=== PATIENT | male | born 1950 | race Caucasian/White ===

== ENCOUNTER → 2021-11-23 10:26 | Outpatient (BNVA) | payer MEDICARE, OTHER, SELFPAY | PROVIDERS: PCP Internal Medicine; Visit Provider Psychiatry & Neurology Neurology | DX: G20 Parkinson's disease (principal); R06.83 Snoring; G47.10 Hypersomnia, unspecified | CPT/HCPCS: 99202 ==

== ENCOUNTER → 2021-12-24 09:56 | Outpatient (REF) | payer MEDICARE, OTHER, SELFPAY | LOC: HO.SL 09:56 | PROVIDERS: PCP Internal Medicine; Visit Provider Psychiatry & Neurology Neurology | DX: R06.83 Snoring (principal); G47.10 Hypersomnia, unspecified | CPT/HCPCS: 95806 ==

== ENCOUNTER → 2022-05-31 08:51 | Outpatient (BNVA) | payer MEDICARE, OTHER, SELFPAY | PROVIDERS: PCP Internal Medicine; Visit Provider Psychiatry & Neurology Neurology | DX: G20 Parkinson's disease (principal); G47.33 Obstructive sleep apnea (adult) (pediatric) | CPT/HCPCS: 99212 ==

== ENCOUNTER 2022-12-03 12:32 | Outpatient (AMB) | payer MEDICARE, OTHER, SELFPAY ==
--- NOTE | 2022-12-03 12:36 | A.OFFVIS_ITS ---
Intake Vital Signs 12/03/22 12:37 Height 6 ft Weight 237 lb 4 oz BMI 32.2 BP 114/62 Blood Pressure Location Rt brachial Position Sitting Respiration 15 Pulse 54 Pulse Source Pulse Oximeter Pulse Oximetry (%) 96 Oxygen Delivery Method Room Air Intake Visit Reasons: 6m follow up tremor-lvm Intake Note: Pt presnts to the office for his 6 month follow up for tremors. He states his tremors are unchanged. Not better but not any worse. He also reports he got shingles about 2 months ago and stopped using his CPAP maching due to the shingles on his face. He hasn't used his machine since and states he feels no different from when he was using it. 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 He is on trihexyphenidyl 1mg bid and does not notice a difference. He has mild memory issues.He is feeling good apart from the tremors. He had a heart attack April 24 . He is on cardiac rehab He joined [facility] and started a parkinsons class. The tremors are mostly at rest.He denies any weakness or stiffness.. His cognition is good. Sleep- good , laughs in his sleep, no vivid dreams , mild snoring. Mood- normal Motivated- good Speech- no change Drooling- none Hand writing- normal Utensils- ok dressing- ok shower- good gait- no problem turning in bed- normal Hallucinations- none GI - acid refulx Fatigue- none Bowel movements- 2 a day Urination- frequent PFSH Medical History Parkinson's disease without dyskinesia or fluctuating manifestations Obstructive sleep apnea Arthritis Hyperlipidemia GERD (gastroesophageal reflux disease) Prostate cancer History of prostate cancer Surgical History Hx of heart artery stent Hx of appendectomy H/O prostatectomy History of hip replacement Family History Mother Heart disease Father Lung cancer Sister Breast cancer Social History Alcohol intake: current Alcohol intake frequency: holidays/special occasions only Alcohol type: wine Patient Tobacco Use Status: Former Tobacco user Substance Use Type: Marijuana Physical Exam Vital Signs: Last Vital Signs Pulse 54 12/03/22 12:37 Resp 15 12/03/22 12:37 BP 114/62 12/03/22 12:37 Pulse Ox 96 12/03/22 12:37 Oxygen Delivery Method Room Air 12/03/22 12:37 BMI result Body Mass Index 32.2 Const General: cooperative, healthy appearing and comfortable Nutritional Appearance: obese Orientation/consciousness: patient oriented x3 HEENT Head: Yes normal to inspection Throat: Yes other (mallampatti grade 4) Neuro Other: UPDRS - 3 Speech 1-Slight loss of expression,diction or volume Facial expression 3-Moderate hypomimia,lips parted some of the time Rest Tremors( head, Upper, lower ) 3-Moderate in amplitude and present most of the time-Left UE Action and Postural tremors 0-none Rigidity 1-Slight or detectable only when activated by mirror movements Finger Taps 1-Mild slowing an femi reductionin amplitude Hand movements 0-normal 1-mild slowing and or reduction in amplitude Rapid Alternating Movements of Hands 0-normal 1-Mild slowing and or reduction in amplitude Leg agility 0-normal Arising from a chair 0-Normal Posture 0-normal 1-slightly stooped, could be normal for an older person Gait 0-normal- decreased arm swing left UE Postural stability 0-normal 1-retropulsion but recovers unaided Body bradykinesia and hypokinesia 0-none 1-minimal slowness,giving movement a deliberate character,could be normal for some persons.Possible reduced amplitude General: patient oriented x3 Motor exam (neuro): 5/5 motor strength present throughout Deep tendon reflexes (DTR's): Right triceps reflex intensity grade: 1+, Left triceps reflex intensity grade: 1+, Rt Biceps (C5, C6): 1+, Left biceps reflex intensity grade: 1+, Right brachioradialis reflex intensity grade: 1+, Left brachioradialis reflex intensity grade: 1+, Right patellar reflex intensity grade: 1+ and Left patellar reflex intensity grade: 1+ Coordination: [id number] test normal Assessment & Plan Assessment & Plan (1) Parkinson's disease without dyskinesia or fluctuating manifestations: Code(s): G20.A1 - Parkinson's disease without dyskinesia, without mention of fluctuations (2) Obstructive sleep apnea: Code(s): G47.33 - Obstructive sleep apnea (adult) (pediatric) Plan D/C trihexyphenidyl 2mg 1/2 tab bid I will trial him on sinemet 25/100 tid - side effects discussed continue parkinsons classes Continue AutoPAP 5-20 cm of water . compliance stressed. Medications: New carbidopa-levodopa 25-100 mg (Sinemet) 1 tab PO TID 90 tabs 6RF Discontinued trihexyphenidyl give with food (meal/snack) Discontinued Reason: Doctor's Order 1 mg (1/2 x 2 mg) PO BID 30 tabs 6RF Coding Level of Care Code Est Pt Level 4 (07500) Diagnoses Parkinson's disease without dyskinesia or fluctuating manifestations G20.A1 Obstructive sleep apnea G47.33
[2022-12-03 12:37] VITALS: BP 114/62; PULSE 54; RESP 15; O2SAT 96; BMI 32.2
== END 2022-12-03 12:56 | disposition home or self-care (01) ==
PROVIDERS: Visit Provider Psychiatry & Neurology Neurology
DX: G20.A1 Parkinson's disease without dyskinesia, without mention of fluctuations (principal); G47.33 Obstructive sleep apnea (adult) (pediatric)
CPT/HCPCS: 99214

== ENCOUNTER → 2022-12-03 12:32 | Outpatient (BNVA) | payer MEDICARE, OTHER, SELFPAY | PROVIDERS: Visit Provider Psychiatry & Neurology Neurology | DX: G20.A1 Parkinson's disease without dyskinesia, without mention of fluctuations (principal); G47.33 Obstructive sleep apnea (adult) (pediatric) | CPT/HCPCS: 99212 ==

== ENCOUNTER 2023-03-13 13:00 | Outpatient (AMB) | payer MEDICARE, OTHER, SELFPAY ==
--- NOTE | 2023-03-13 13:03 | A.OFFVIS_ITS ---
Intake Vital Signs 03/13/23 13:06 Height 6 ft Weight 241 lb 2 oz BMI 32.7 BP 110/70 Blood Pressure Location Rt brachial Position Sitting Respiration 16 Pulse 64 Pulse Source Palpation Intake Visit Reasons: 3M follow up/ LVM Intake Note: Pt presents to the office for 3 month follow up for tremors. He reports not seeing a change with his medicine. 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 He joined [facility] and started a parkinsons class. The tremors are mostly at rest.He denies any weakness or stiffness..He reports pain in his left fingers. He tried warm compresses, massager but did not help.He started using chondroitin, glucosamine .He describes the pain as ache, stabbing pain. His cognition is good. Sleep- good , laughs in his sleep, no vivid dreams , mild snoring. Mood- normal Motivated- good Speech- no change Drooling- none Hand writing- normal Utensils- ok dressing- ok shower- good gait- no problem turning in bed- normal Hallucinations- none GI - acid refulx Fatigue- none Bowel movements- 2 a day Urination- frequent [facility] Medical History (Updated 03/13/23 @ 13:25 by Floridalma Carter MD) Left hand pain Right hand pain Parkinson's disease without dyskinesia or fluctuating manifestations Obstructive sleep apnea Arthritis Hyperlipidemia GERD (gastroesophageal reflux disease) Prostate cancer History of prostate cancer Surgical History Hx of heart artery stent Hx of appendectomy H/O prostatectomy History of hip replacement Family History Mother Heart disease Father Lung cancer Sister Breast cancer Social History Alcohol intake: current Alcohol intake frequency: holidays/special occasions only Alcohol type: wine Patient Tobacco Use Status: Former Tobacco user Substance Use Type: Marijuana Physical Exam Vital Signs: Last Vital Signs Pulse 64 03/13/23 13:06 Resp 16 03/13/23 13:06 BP 110/70 03/13/23 13:06 BMI result Body Mass Index 32.7 Const General: cooperative, healthy appearing and comfortable Nutritional Appearance: obese Orientation/consciousness: patient oriented x3 HEENT Head: Yes normal to inspection Throat: Yes other (mallampatti grade 4) Neuro Other: UPDRS - 3 Speech 1-Slight loss of expression,diction or volume Facial expression 3-Moderate hypomimia,lips parted some of the time Rest Tremors( head, Upper, lower ) 3-Moderate in amplitude and present most of the time-Left UE Action and Postural tremors 0-none Rigidity 1-Slight or detectable only when activated by mirror movements Finger Taps 1-Mild slowing an femi reductionin amplitude Hand movements 0-normal 1-mild slowing and or reduction in amplitude Rapid Alternating Movements of Hands 0-normal 1-Mild slowing and or reduction in amplitude Leg agility 0-normal Arising from a chair 0-Normal Posture 0-normal 1-slightly stooped, could be normal for an older person Gait 0-normal- decreased arm swing left UE Postural stability 0-normal 1-retropulsion but recovers unaided Body bradykinesia and hypokinesia 0-none 1-minimal slowness,giving movement a deliberate character,could be normal for some persons.Possible reduced amplitude General: patient oriented x3 Motor exam (neuro): 5/5 motor strength present throughout Coordination: [id number] test normal Assessment & Plan Assessment & Plan (1) Parkinson's disease without dyskinesia or fluctuating manifestations: Code(s): G20.A1 - Parkinson's disease without dyskinesia, without mention of fluctuations (2) Obstructive sleep apnea: Code(s): G47.33 - Obstructive sleep apnea (adult) (pediatric) Plan Increase sinemet 25/100 1.5 tabs tid - side effects discussed continue parkinsons classes Continue AutoPAP 5-20 cm of water . compliance stressed. Orders: Referrals Rheumatology Referral M79.642 - Pain in left hand Medications: Changed From carbidopa-levodopa 25-100 mg (Sinemet) 1 tab PO TID 90 tabs 6RF To carbidopa-levodopa 25-100 mg (Sinemet) 1.5 tabs PO TID 150 tabs 6RF Coding Level of Care Code Est Pt Level 4 (45249) Diagnoses Parkinson's disease without dyskinesia or fluctuating manifestations G20.A1 Obstructive sleep apnea G47.33
[2023-03-13 13:06] VITALS: BP 110/70; PULSE 64; RESP 16; BMI 32.7
== END 2023-03-13 13:30 | disposition home or self-care (01) ==
PROVIDERS: PCP Internal Medicine; Visit Provider Psychiatry & Neurology Neurology
DX: G20.A1 Parkinson's disease without dyskinesia, without mention of fluctuations (principal); G47.33 Obstructive sleep apnea (adult) (pediatric)
CPT/HCPCS: 99214

== ENCOUNTER → 2023-03-13 13:00 | Outpatient (BNVA) | payer MEDICARE, OTHER, SELFPAY | PROVIDERS: PCP Internal Medicine; Visit Provider Psychiatry & Neurology Neurology | DX: G20.A1 Parkinson's disease without dyskinesia, without mention of fluctuations (principal); G47.33 Obstructive sleep apnea (adult) (pediatric) | CPT/HCPCS: 99212 ==

== ENCOUNTER 2023-04-30 14:39 | Outpatient (REF) | payer MEDICARE, OTHER, SELFPAY ==
--- NOTE | ~2023-04-30 | XR_ITS ---
EXAMINATION: XR FOOT, RIGHT CLINICAL INFORMATION: Pain in left and right foot COMPARISON: None available. TECHNIQUE: AP, lateral, and oblique views of the right foot. FINDINGS: There is no evidence of fracture. There are mild degenerative changes at the first metatarsophalangeal joint without erosive changes. Soft tissues unremarkable. There is plantar and small posterior calcaneal spurring. XR/XR foot RT min 3V IMPRESSION: Mild degenerative changes and calcaneal spurring
--- NOTE | ~2023-04-30 | XR_ITS ---
EXAMINATION: XR HAND, LEFT CLINICAL INFORMATION: Pain in hand COMPARISON: None available. TECHNIQUE: PA, lateral, and oblique views of the left hand. FINDINGS: There is narrowing and irregularity of the proximal and distal interphalangeal joints, more prominent in the face and fourth fingers consistent with changes of osteoarthritis. Soft tissues unremarkable. XR/XR hand LT min 3V IMPRESSION: Changes of osteoarthritis
--- NOTE | ~2023-04-30 | XR_ITS ---
EXAMINATION: XR FOOT, LEFT CLINICAL INFORMATION: Pain in left foot COMPARISON: None available. TECHNIQUE: AP, lateral, and oblique views of the left foot. FINDINGS: There are changes of osteoarthritis at the first metatarsophalangeal joint with marginal spurring and subchondral cysts formation. There is plantar and posterior calcaneal spurring. There is no evidence of fractures. Soft tissues unremarkable XR/XR foot LT min 3V IMPRESSION: Changes of osteoarthritis of the first metatarsophalangeal joint and calcaneal spurring
--- NOTE | ~2023-04-30 | XR_ITS ---
EXAMINATION: XR HAND, RIGHT CLINICAL INFORMATION: Pain COMPARISON: None available. TECHNIQUE: PA, lateral, and oblique views of the right hand. FINDINGS: There is mild irregularity and narrowing of distal and proximal interphalangeal joints, less prominent than on the left. There are mild narrowing of fourth and third metacarpophalangeal joints there are changes of osteoarthritis of the first carpometacarpal joint with subchondral cysts formation and buttressing. Soft tissues unremarkable. No evidence of fractures. XR/XR hand RT min 3V IMPRESSION: Changes of osteoarthritis.
--- NOTE | ~2023-04-30 | XR_ITS ---
EXAMINATION: XR ABDOMEN KUB CLINICAL INDICATION: Abdominal pain COMPARISON: None available. TECHNIQUE: AP view of the abdomen, 3 views. FINDINGS: The bowel gas pattern is normal with no evidence of ileus or obstruction. No unusual soft tissue calcifications are noted. 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 XR/XR abdomen 1V IMPRESSION: Unremarkable abdomen
[2023-04-30 16:01] LABS: MANUAL DIFF FLAG NO
[2023-04-30 16:28] LABS: Basophils Percent Auto 0.5 % (0-2); Eosinophils Absolute Auto 0.1 X10*3/uL (0.0-0.4); Eosinophils Percent Auto 1.9 % (0-4); Hematocrit 43.1 % (42.0-52.0); Hemoglobin 15.1 g/dl (14.0-18.0); Imm Gran Abs Auto 0.02 X10*3/uL (0.00-0.03); Imm Gran Pct Auto 0.3 % (0.0-0.4); Lymphocytes Absolute Auto 1.4 X10*3/uL (1.2-4.9); Mean Corpuscular Hemoglobin 30.6 pg (27.0-33.0); Mean Corpuscular Volume 87.2 fL (80.0-98.0); Mean Platelet Volume 9.1 fL (9.4-12.4); Monocytes Absolute Auto 0.6 X10*3/uL (0.1-1.2); Monocytes Percent Auto 9.6 % (2-11); Neutrophils Absolute Auto 3.6 x10*3/uL (2.0-8.3); Neutrophils Percent Auto 62.7 % (45-73); Platelet Count 168 X10*3/uL (160-400); Red Blood Count 4.94 X10*6/uL (4.60-5.80); Red Cell Distribution Width 13.2 % (11.0-16.0); White Blood Count 5.8 X10*3/uL (4.8-10.8)
[2023-04-30 17:03] LABS: Erythrocyte Sedimentation Rate 3 MM/HR (0-15)
[2023-04-30 17:36] LABS: Alanine Aminotransferase 5 U/L (0-40); Albumin Level 4.2 g/dL (3.5-5.0); Alkaline Phosphatase 58 U/L (39-117); Anion Gap 10 (12-20); Aspartate Amino Transferase 16 U/L (5-37); Bilirubin Total 0.7 mg/dL (0.0-1.0); Blood Urea Nitrogen 17 mg/dL (9-16); C Reactive Protein < 0.10 mg/dL (< or = 0.50); Calcium 8.9 mg/dL (8.4-10.2); Carbon Dioxide 26 mmol/L (22-29); Chloride 109 mmol/L (96-108); Estimated Glomerular Filt Rate > 60; Glucose Random 99 mg/dL (60-115); Potassium 3.8 mmol/L (3.3-5.1); Sodium 141 mmol/L (135-145); Total Protein 6.9 g/dL (6.5-8.0); Uric Acid 4.4 mg/dL (3.4-7.0)
[2023-04-30 17:38] LABS: Rheumatoid Factor < 13.0 IU/mL (<15.0)
[2023-05-01 08:21] LABS: HBS Num1 0.12 mIU/mL (0-7.99); HBc Num1 0.06 S/CO (0.00-0.79); HBsAGNum1 0.35 S/CO (0.00-0.99); Hepatitis A Antibody IgM 0.13 Index (0-0.79); Hepatitis B Core Antibody Nonreactive (Nonreactive); Hepatitis B Surface Antigen Negative (Negative); ~HepC Num1 0.08 S/CO (0.00-0.79); ~Hepatitis A Antibody IgM Nonreactive (Nonreactive); ~Hepatitis B Surface Antibody NONREACTIVE (Nonreactive); ~Hepatitis C Antibody Nonreactive (Nonreactive)
[2023-05-02 13:43] LABS: SM/Ribonucleoprotein Ab <1.0 NEG AI (<1.0 NEG); Smith Protein <1.0 NEG AI (<1.0 NEG)
[2023-05-02 13:52] LABS: Cyclic Citrullinated Peptide <16 UNITS
[2023-05-02 21:03] LABS: Prot Elec - Alpha1 0.3 g/dL (0.2-0.3); Prot Elec - Alpha2 0.5 g/dL (0.5-0.9); Prot Elec - Beta 1 0.5 g/dL (0.4-0.6); Prot Elec - Beta 2 0.3 g/dL (0.2-0.5); Prot Elec - Gamma 0.9 g/dL (0.8-1.7); Prot Elec - Total Protein 6.4 g/dL (6.1-8.1)
[2023-05-02 22:33] LABS: TS Negative Control Passed; TS Panel A 0; TS Panel B 0; TS Positive Control Passed; TSpotTB Negative (Negative)
[2023-05-06 16:33] LABS: IgA 208 mg/dL (70-320); IgG 1009 mg/dL (600-1540); IgM 81 mg/dL (50-300)
[2023-05-07 11:24] LABS: ANA Pattern 2 Nuclear, Homogeneous; Anti Nuclear Antibody Pattern Nuclear, Nucleolar; Anti Nuclear Antibody Screen POSITIVE (NEGATIVE)
== END 2023-04-30 14:40 | disposition home or self-care (01) ==
LOC: HO.XRAY 14:39
PROVIDERS: PCP Internal Medicine; Visit Provider Nurse Practitioner Family
DX: Z11.1 Encounter for screening for respiratory tuberculosis (principal); M25.571 Pain in right ankle and joints of right foot; M25.572 Pain in left ankle and joints of left foot; M79.642 Pain in left hand; M79.641 Pain in right hand; M79.671 Pain in right foot; M79.672 Pain in left foot; R10.9 Unspecified abdominal pain; G89.29 Other chronic pain
CPT/HCPCS: 36415; 73130; 73630; 74018; 80053; 82550; 82784; 84165; 84550; 85025; 85652; 86038; 86039; 86140; 86200; 86235; 86334; 86431; 86481; 86704; 86706; 86709; 86803; 87340; 99202

== ENCOUNTER 2023-04-30 14:39 | Outpatient (AMB) | payer MEDICARE, OTHER, SELFPAY ==
[2023-04-30 14:51] VITALS: BP 118/68; PULSE 67; TEMP 36.3; O2SAT 99; BMI 33.5
--- NOTE | 2023-04-30 14:51 | A.OFFVIS_ITS ---
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 Nuñez 72-year-old male, here on referral by his neurologist, presents today for evaluation left hand pain and finger swelling. The patient reports that he has had pain and swelling in his hands/fingers for several years that comes and goes. However recently the 2nd and 5th PIP of his left hand has been swelling and hurts more often now. He denies swelling in other joints. He does describe regular aches and pains that he thinks comes with naturally with aging. He was diagnosed with Parkinson's 2 years ago. Patient has a history of prostate cancer 9 years ago. He takes Eliquis, rosuvastatin, sildenafil, Sinemet and Plavix. He has also used diclofenac 1% gel in the past without effective relief. The patient denies uveitis, psoriasis, GI concerns, and Achilles tendonitis or plantar fasciitis. He denies known personal or family history of gout 03/13/2023 Neuro Visit: 72y/o right handed male comes for follow up of Parkinsons disease that started in Jan 2021 and JEANMARIE- AHI 11 O2 luke 85%.He was unable use CPAP.He sleeps on his side and bought a new mattress which helps. He joined [employer] and started a parkinsons class. The tremors are mostly at rest.He denies any weakness or stiffness..He reports pain in his left fingers. He tried warm compresses, massager but did not help.He started using chondroitin, glucosamine .He describes the pain as ache, stabbing pain. His cognition is good. Sleep- good , laughs in his sleep, no vivid dreams , mild snoring. Mood- normal Motivated- good Speech- no change Drooling- none Hand writing- normal Utensils- ok dressing- ok shower- good gait- no problem turning in bed- normal Hallucinations- none GI - acid refulx Fatigue- none Bowel movements- 2 a day Urination- frequent [facility] Medical History (Updated 04/30/23 @ 15:31 by Ammy Huggins [facility]) Chronic right flank pain Bilateral ankle joint pain Bilateral foot pain Left hand pain Right hand pain Parkinson's disease without dyskinesia or fluctuating manifestations Obstructive sleep apnea Arthritis Hyperlipidemia GERD (gastroesophageal reflux disease) Prostate cancer History of prostate cancer Surgical History Hx of heart artery stent Hx of appendectomy H/O prostatectomy History of hip replacement Family History Mother Heart disease Father Lung cancer Sister Breast cancer Social History Alcohol intake: current Alcohol intake frequency: holidays/special occasions only Alcohol type: wine Patient Tobacco Use Status: Former Tobacco user Substance Use Type: Marijuana Review of Systems Const All systems reviewed & are unremarkable except as noted in HPI and below Physical Exam Vital Signs: Last Vital Signs Temp 97.3 F 04/30/23 14:51 Pulse 67 04/30/23 14:51 BP 118/68 04/30/23 14:51 Pulse Ox 99 04/30/23 14:51 Oxygen Delivery Method Room Air 04/30/23 14:51 BMI result Body Mass Index 33.5 Vital signs reviewed. Constitutional: Non-toxic appearing. No acute distress. Well-developed and well-nourished. HEENT: Normocephalic and atraumatic. External auditory canals without erythema or edema bilaterally. Moist mucous membranes. No pharyngeal erythema or exudates. Skin: Warm and dry. No rashes or lesions noted. Neck: Full and painless range of motion. No cervical lymphadenopathy. Cardio: Regular rate and rhythm. No murmurs, gallops, or rubs. No lower extremity edema. No JVD. Pulmonary: No respiratory distress. No accessory muscle usage. Genitourinary: No CVA tenderness. Musculoskeletal: Normal range of motion in joints throughout the body. Decreased range of motion to bilateral 2nd and 3rd fingers, unable to make complete fist with all fingers. Swelling and tenderness to right 2nd and 5th PIP joints with contracture Neuro: Alert and oriented x4. Cranial nerves 2-12 grossly intact. No focal deficits appreciated. Assessment & Plan Assessment & Plan (1) Left hand pain: Code(s): M79.642 - Pain in left hand (2) Right hand pain: Code(s): M79.641 - Pain in right hand (3) Bilateral ankle joint pain: Code(s): M25.571 - Pain in right ankle and joints of right foot; M25.572 - Pain in left ankle and joints of left foot (4) Bilateral foot pain: Code(s): M79.671 - Pain in right foot; M79.672 - Pain in left foot (5) Chronic right flank pain: Code(s): R10.9 - Unspecified abdominal pain; G89.29 - Other chronic pain Plan #Hand and Foot Swelling: The patient reports that he has been having intermittent hand and foot swelling over the last few years. However in recent months the swelling in his fingers as described in his physical examination has not been resolving. Says it is painful and it makes it difficult to do certain tasks. There is clear synovitis to his right 2nd PIP joint. It is likely that this can be of rheumatoid arthritis or crystal arthropathy. I will obtain labs and x-rays to assess patient's baseline. I will 1st treat this as gout given the localized swelling presentation. I will prescribe him some colchicine for the next 10 days. If this does not result in his colchicine we will consider to start him on a course of prednisone. If his lab results return elevated uric acid and will start him on allopurinol. If the prednisone resolves the swelling and pain and the uric acid level is low will consider this to be a non crystal inflammatory arthritis. #Flank pain: The patient describes pain to the right flank area when he swings his golf club or sits a certain way. This could likely be a kidney stone, a pulled muscle. no percussion tenderness on exam. If if persists patient can discuss with his primary care provider to consider doing a abdominal x-ray. I spent 50 minutes reviewing history, evaluating patient and documenting Follow-up in 3 weeks Orders: Orders XR hand RT min 3V 04/30/23 M25.571 - Pain in right ankle and joints of right foot, M25.572 - Pain in left ankle and joints of left foot, M79.641 - Pain in right hand, M79.642 - Pain in left hand, M79.671 - Pain in right foot, M79.672 - Pain in left foot Anti Extractable Nuclear Ag 04/30/23 M25.571 - Pain in right ankle and joints of right foot, M25.572 - Pain in left ankle and joints of left foot, M79.641 - Pain in right hand, M79.642 - Pain in left hand, M79.671 - Pain in right foot, M79.672 - Pain in left foot Complete Blood Count Auto Diff 04/30/23 M25.571 - Pain in right ankle and joints of right foot, M25.572 - Pain in left ankle and joints of left foot, M79.641 - Pain in right hand, M79.642 - Pain in left hand, M79.671 - Pain in right foot, M79.672 - Pain in left foot Comprehensive Met. Panel 04/30/23 M25.571 - Pain in right ankle and joints of right foot, M25.572 - Pain in left ankle and joints of left foot, M79.641 - Pain in right hand, M79.642 - Pain in left hand, M79.671 - Pain in right foot, M79.672 - Pain in left foot Immunoglobulins,IgG IgA IgM 04/30/23 M25.571 - Pain in right ankle and joints of right foot, M25.572 - Pain in left ankle and joints of left foot, M79.641 - Pain in right hand, M79.642 - Pain in left hand, M79.671 - Pain in right foot, M79.672 - Pain in left foot Uric Acid 04/30/23 M25.571 - Pain in right ankle and joints of right foot, M25.572 - Pain in left ankle and joints of left foot, M79.641 - Pain in right hand, M79.642 - Pain in left hand, M79.671 - Pain in right foot, M79.672 - Pain in left foot Rheumatoid Factor 04/30/23 M25.571 - Pain in right ankle and joints of right foot, M25.572 - Pain in left ankle and joints of left foot, M79.641 - Pain in right hand, M79.642 - Pain in left hand, M79.671 - Pain in right foot, M79.672 - Pain in left foot XR foot LT min 3V 04/30/23 M25.571 - Pain in right ankle and joints of right foot, M25.572 - Pain in left ankle and joints of left foot, M79.641 - Pain in right hand, M79.642 - Pain in left hand, M79.671 - Pain in right foot, M79.672 - Pain in left foot XR foot RT min 3V 04/30/23 M25.571 - Pain in right ankle and joints of right foot, M25.572 - Pain in left ankle and joints of left foot, M79.641 - Pain in right hand, M79.642 - Pain in left hand, M79.671 - Pain in right foot, M79.672 - Pain in left foot XR hand LT min 3V 04/30/23 M25.571 - Pain in right ankle and joints of right foot, M25.572 - Pain in left ankle and joints of left foot, M79.641 - Pain in right hand, M79.642 - Pain in left hand, M79.671 - Pain in right foot, M79.672 - Pain in left foot Erythrocyte Sedimentation Rate 04/30/23 M25.571 - Pain in right ankle and joints of right foot, M25.572 - Pain in left ankle and joints of left foot, M79.641 - Pain in right hand, M79.642 - Pain in left hand, M79.671 - Pain in right foot, M79.672 - Pain in left foot PRETTY Reflex Titer and Pattern 04/30/23 M25.571 - Pain in right ankle and joints of right foot, M25.572 - Pain in left ankle and joints of left foot, M79.641 - Pain in right hand, M79.642 - Pain in left hand, M79.671 - Pain in right foot, M79.672 - Pain in left foot C Reactive Protein 04/30/23 M25.571 - Pain in right ankle and joints of right foot, M25.572 - Pain in left ankle and joints of left foot, M79.641 - Pain in right hand, M79.642 - Pain in left hand, M79.671 - Pain in right foot, M79.672 - Pain in left foot Creatine Kinase Total 04/30/23 M25.571 - Pain in right ankle and joints of right foot, M25.572 - Pain in left ankle and joints of left foot, M79.641 - Pain in right hand, M79.642 - Pain in left hand, M79.671 - Pain in right foot, M79.672 - Pain in left foot Protein Electrophoresis, Serum 04/30/23 M25.571 - Pain in right ankle and joints of right foot, M25.572 - Pain in left ankle and joints of left foot, M79.641 - Pain in right hand, M79.642 - Pain in left hand, M79.671 - Pain in right foot, M79.672 - Pain in left foot Hepatitis A,B,C Profile 04/30/23 M25.571 - Pain in right ankle and joints of right foot, M25.572 - Pain in left ankle and joints of left foot, M79.641 - Pain in right hand, M79.642 - Pain in left hand, M79.671 - Pain in right foot, M79.672 - Pain in left foot T Spot TB 04/30/23 M25.571 - Pain in right ankle and joints of right foot, M25.572 - Pain in left ankle and joints of left foot, M79.641 - Pain in right hand, M79.642 - Pain in left hand, M79.671 - Pain in right foot, M79.672 - Pain in left foot Immunofixation Pnl, Serum 04/30/23 M25.571 - Pain in right ankle and joints of right foot, M25.572 - Pain in left ankle and joints of left foot, M79.641 - Pain in right hand, M79.642 - Pain in left hand, M79.671 - Pain in right foot, M79.672 - Pain in left foot Cyclic Citrullinated Peptide 04/30/23 M25.571 - Pain in right ankle and joints of right foot, M25.572 - Pain in left ankle and joints of left foot, M79.641 - Pain in right hand, M79.642 - Pain in left hand, M79.671 - Pain in right foot, M79.672 - Pain in left foot Coding Level of Care Code New Pt Level 4 (11953) Diagnoses Left hand pain M79.642 Right hand pain M79.641 Bilateral ankle joint pain M25.571; M25.572 Bilateral foot pain M79.671; M79.672 Chronic right flank pain R10.9; G89.29
== END 2023-04-30 15:39 | disposition home or self-care (01) ==
PROVIDERS: PCP Internal Medicine; Visit Provider Nurse Practitioner Family
DX: M79.642 Pain in left hand (principal); M79.641 Pain in right hand; M25.571 Pain in right ankle and joints of right foot; M25.572 Pain in left ankle and joints of left foot; M79.671 Pain in right foot; M79.672 Pain in left foot; R10.9 Unspecified abdominal pain; G89.29 Other chronic pain
CPT/HCPCS: 99204

== ENCOUNTER 2023-05-21 15:05 | Outpatient (AMB) | payer MEDICARE, OTHER, SELFPAY ==
--- NOTE | 2023-05-21 15:07 | A.OFFVIS_ITS ---
Vital Signs 05/21/23 15:13 Height 5 ft 11 in Weight 233 lb 0.458 oz BMI 32.5 BP 120/58 L Blood Pressure Location Rt brachial Position Sitting Pulse 62 Pulse Source Pulse Oximeter Pulse Oximetry (%) 98 Oxygen Delivery Method Room Air Intake Visit Reasons: Hand finger swelling Intake Note: Patient last seen 04/30/23, presents today for follow up and test results. Patient would like to discuss the use of colchicine and atorvastatin. Supervisor Tumbling And Rolling Required: No Accompanied by: Self / Same As Patient Allergies No Known Allergies Allergy (Verified 05/21/23 15:14) HPI Comments Details: 04/30/2023 initial Visit: Mr. Nuñez 72-year-old male, here on referral by his neurologist, presents today for evaluation left hand pain and finger swelling. The patient reports that he has had pain and swelling in his hands/fingers for several years that comes and goes. However recently the 2nd and 5th PIP of his left hand has been swelling and hurts more often now. He denies swelling in other joints. He does describe regular aches and pains that he thinks comes with naturally with aging. He was diagnosed with Parkinson's 2 years ago. Patient has a history of prostate cancer 9 years ago. He takes Eliquis, rosuvastatin, sildenafil, Sinemet and Plavix. He has also used diclofenac 1% gel in the past without effective relief. The patient denies uveitis, psoriasis, GI concerns, and Achilles tendonitis or plantar fasciitis. He denies known personal or family history of gout 03/13/2023 Neuro Visit: 72y/o right handed male comes for follow up of Parkinsons disease that started in Jan 2021 and JEANMARIE- AHI 11 O2 luke 85%.He was unable use CPAP.He sleeps on his side and bought a new mattress which helps. He joined [facility] and started a parkinsons class. The tremors are mostly at rest.He denies any weakness or stiffness..He reports pain in his left fingers. He tried warm compresses, massager but did not help.He started using chondroitin, glucosamine .He describes the pain as ache, stabbing pain. His cognition is good. Sleep- good , laughs in his sleep, no vivid dreams , mild snoring. Mood- normal Motivated- good Speech- no change Drooling- none Hand writing- normal Utensils- ok dressing- ok shower- good gait- no problem turning in bed- normal Hallucinations- none GI - acid refulx Fatigue- none Bowel movements- 2 a day Urination- frequent [facility] Medical History (Updated 04/30/23 @ 15:31 by Ammy Huggins [facility]) Chronic right flank pain Bilateral ankle joint pain Bilateral foot pain Left hand pain Right hand pain Parkinson's disease without dyskinesia or fluctuating manifestations Obstructive sleep apnea Arthritis Hyperlipidemia GERD (gastroesophageal reflux disease) Prostate cancer History of prostate cancer Surgical History Hx of heart artery stent Hx of appendectomy H/O prostatectomy History of hip replacement Family History Mother Heart disease Father Lung cancer Sister Breast cancer Social History Alcohol intake: current Alcohol intake frequency: holidays/special occasions only Alcohol type: wine Patient Tobacco Use Status: Former Tobacco user Substance Use Type: Marijuana Review of Systems Const All systems reviewed & are unremarkable except as noted in HPI and below Physical Exam Vital Signs: Last Vital Signs Pulse 62 05/21/23 15:13 BP 120/58 L 05/21/23 15:13 Pulse Ox 98 05/21/23 15:13 Oxygen Delivery Method Room Air 05/21/23 15:13 BMI result Body Mass Index 32.5 Vital signs reviewed. Constitutional: Non-toxic appearing. No acute distress. Well-developed and well-nourished. HEENT: Normocephalic and atraumatic. External auditory canals without erythema or edema bilaterally. Moist mucous membranes. No pharyngeal erythema or exudates. Skin: Warm and dry. No rashes or lesions noted. Neck: Full and painless range of motion. No cervical lymphadenopathy. Cardio: Regular rate and rhythm. No murmurs, gallops, or rubs. No lower extremity edema. No JVD. Pulmonary: No respiratory distress. No accessory muscle usage. Genitourinary: No CVA tenderness. Musculoskeletal: Normal range of motion in joints throughout the body. Decreased range of motion to bilateral 2nd and 3rd fingers, unable to make comp lete fist with all fingers. Swelling and tenderness to right 2nd and 5th PIP joints with contracture has improved - trace swelling remains and no tenderness Neuro: Alert and oriented x4. Cranial nerves 2-12 grossly intact. No focal deficits appreciated. Results Reviewed Results Reviewed: Laboratory Tests 04/30/23 16:00 WBC 5.8 RBC 4.94 Hgb 15.1 Hct 43.1 Creatinine 0.74 AST 16 ALT 5 Total Creatine Kinase 195 H C-Reactive Protein < 0.10 Total Protein 6.9 Total Protein (PEP) 6.4 IgG Total 1009 IgA Total 208 IgM 81 Rheumatoid Factor < 13.0 Cycl Citrul Peptide IgG <16 PRETTY Titer 1:320 H Sm (Ochoa) Antibody <1.0 NEG SM/SENIOR [employer]ACLE [employer]F DEVELOPER IgG Antibody <1.0 NEG Laboratory Tests 04/30/23 16:00 ESR 3 Uric Acid 4.4 TECHNIQUE: AP, lateral, and oblique views of the right foot. FINDINGS: There is no evidence of fracture. There are mild degenerative changes at the first metatarsophalangeal joint without erosive changes. Soft tissues unremarkable. There is plantar and small posterior calcaneal spurring. XR/XR foot RT min 3V IMPRESSION: Mild degenerative changes and calcaneal spurring FINDINGS: There are changes of osteoarthritis at the first metatarsophalangeal joint with marginal spurring and subchondral cysts formation. There is plantar and posterior calcaneal spurring. There is no evidence of fractures. Soft tissues unremarkable XR/XR foot LT min 3V IMPRESSION: Changes of osteoarthritis of the first metatarsophalangeal joint and calcaneal spurring FINDINGS: There is mild irregularity and narrowing of distal and proximal interphalangeal joints, less prominent than on the left. There are mild narrowing of fourth and third metacarpophalangeal joints there are changes of osteoarthritis of the first carpometacarpal joint with subchondral cysts formation and buttressing. Soft tissues unremarkable. No evidence of fractures. XR/XR hand RT min 3V IMPRESSION: Changes of osteoarthritis. FINDINGS: There is narrowing and irregularity of the proximal and distal interphalangeal joints, more prominent in the face and fourth fingers consistent with changes of osteoarthritis. Soft tissues unremarkable. XR/XR hand LT min 3V IMPRESSION: Changes of osteoarthritis Assessment & Plan Assessment & Plan (1) Left hand pain: Code(s): M79.642 - Pain in left hand Category: Medical (2) Right hand pain: Code(s): M79.641 - Pain in right hand Category: Medical (3) Bilateral ankle joint pain: Code(s): M25.571 - Pain in right ankle and joints of right foot; M25.572 - Pain in left ankle and joints of left foot Category: Medical (4) Bilateral foot pain: Code(s): M79.671 - Pain in right foot; M79.672 - Pain in left foot Category: Medical (5) Chronic right flank pain: Code(s): R10.9 - Unspecified abdominal pain; G89.29 - Other chronic pain Category: Medical Plan # hand swelling: Mr. Gerard and returns for evaluation of initial assessment of hand swelling, positive PRETTY anterior review his diagnostic results. Mr. Nuñez had improvement of his hand and foot swelling on the course of colchicine. He still has some trace swelling and minimal tenderness remaining at the left PIP joint, 2nd and 3rd. I think some prednisone will help to clear up fully. At this point I am suspecting it is more crystal arthropathy than an inflammatory arthropathy such as rheumatoid. The paradoxus that his uric acid levels are normal at this point. Additionally his PRETTY remains positive but the ENAs are negative and so is his rheumatoid factor and CCP, ESR and CRP. If return of symptoms becomes chronic I will consider this as an inflammatory seronegative rheumatoid arthritis and start a DMARD. I spent 30 minutes with the patient reviewing chart, discussing lab findings, discussing treatment going forward, evaluating the patient and documenting 6 months follow-up with labs 1 week before next visit Initial assessment: #Hand and Foot Swelling: The patient reports that he has been having intermittent hand and foot swelling over the last few years. However in recent months the swelling in his fingers as described in his physical examination has not been resolving. Says it is painful and it makes it difficult to do certain tasks. There is clear synovitis to his right 2nd PIP joint. It is likely that this can be of rheumatoid arthritis or crystal arthropathy. I will obtain labs and x-rays to assess patient's baseline. I will 1st treat this as gout given the localized swelling presentation. I will prescribe him some colchicine for the next 10 days. If this does not result in his colchicine we will consider to start him on a course of prednisone. If his lab results return elevated uric acid and will start him on allopurinol. If the prednisone resolves the swelling and pain and the uric acid level is low will consider this to be a non crystal inflammatory arthritis. #Flank pain: The patient describes pain to the right flank area when he swings his golf club or sits a certain way. This could likely be a kidney stone, a pulled muscle. no percussion tenderness on exam. If if persists patient can discuss with his primary care provider to consider doing a abdominal x-ray. Medications: New prednisone orally daily; 3 tablets per day x 3 days 2 tablets per day x 3 days 1 tablet per day x 3 days stop. 20 tabs 0RF M79.641 - Pain in right hand, M79.642 - Pain in left hand
[2023-05-21 15:13] VITALS: BP 120/58; PULSE 62; O2SAT 98; BMI 32.5
== END 2023-05-21 15:42 | disposition home or self-care (01) ==
PROVIDERS: PCP Internal Medicine; Visit Provider Nurse Practitioner Family
DX: M79.642 Pain in left hand (principal); M79.641 Pain in right hand; M25.571 Pain in right ankle and joints of right foot; M25.572 Pain in left ankle and joints of left foot; M79.671 Pain in right foot; M79.672 Pain in left foot; R10.9 Unspecified abdominal pain; G89.29 Other chronic pain
CPT/HCPCS: 99213

== ENCOUNTER → 2023-05-21 15:05 | Outpatient (BNVA) | payer MEDICARE, OTHER, SELFPAY | PROVIDERS: PCP Internal Medicine; Visit Provider Nurse Practitioner Family | DX: M79.89 Other specified soft tissue disorders (principal) | CPT/HCPCS: 99212 ==

== ENCOUNTER 2023-07-14 14:06 | Outpatient (AMB) | payer MEDICARE, OTHER, SELFPAY ==
--- NOTE | 2023-07-14 14:11 | A.OFFVIS_ITS ---
Vital Signs 07/14/23 14:16 Height 5 ft 11 in Weight 239 lb 4 oz BMI 33.4 BP 112/62 Blood Pressure Location Rt brachial Position Sitting Respiration 16 Pulse 63 Pulse Source Pulse Oximeter Pulse Oximetry (%) 97 Oxygen Delivery Method Room Air Intake Visit Reasons: 4 mo f/u - LVM w/add Intake Note: Pt presents for a 4 month follow up for JEANMARIE. Information Engineer Required: No Allergies No Known Allergies Allergy (Verified 07/14/23 14:12) Medication List - Last Reconciled 07/14/23 by Floridalma Carter MD apixaban (Eliquis) 5 mg PO BID carbidopa-levodopa 25-100 mg (Sinemet) 1.5 tabs PO TID colchicine 0.6 mg PO DAILY ezetimibe 10 mg PO DAILY prednisone orally daily; 3 tablets per day x 3 days 2 tablets per day x 3 days 1 tablet per day x 3 days stop. rosuvastatin 40 mg PO DAILY sildenafil 100 mg PO DAILY PRN HPI Comments Details: 72y/o right handed male comes for follow up of Parkinsons disease that started in Jan 2021 and JEANMARIE- AHI 11 O2 luke 85%.He was unable use CPAP.He sleeps on his side and bought a new mattress which helps. He joined [employer] and started a parkinsons class. The tremors are mostly at rest.He denies any weakness or stiffness..He reports pain in his left fingers. He tried warm compresses, massager but did not help.He started using chondroitin, glucosamine .He describes the pain as ache, stabbing pain. His cognition is good. Sleep- good , laughs in his sleep, no vivid dreams , mild snoring. Mood- normal Motivated- good Speech- no change Drooling- none Hand writing- normal Utensils- ok dressing- ok shower- good gait- no problem turning in bed- normal Hallucinations- none GI - acid refulx Fatigue- none Bowel movements- 2 a day Urination- frequent [facility] Medical History (Updated 04/30/23 @ 15:31 by TRACY Garcia-) Chronic right flank pain Bilateral ankle joint pain Bilateral foot pain Left hand pain Right hand pain Parkinson's disease without dyskinesia or fluctuating manifestations Obstructive sleep apnea Arthritis Hyperlipidemia GERD (gastroesophageal reflux disease) Prostate cancer History of prostate cancer Surgical History Hx of heart artery stent Hx of appendectomy H/O prostatectomy History of hip replacement Family History Mother Heart disease Father Lung cancer Sister Breast cancer Social History Alcohol intake: current Alcohol intake frequency: holidays/special occasions only Alcohol type: wine Patient Tobacco Use Status: Former Tobacco user Substance Use Type: Marijuana Physical Exam Vital Signs: Last Vital Signs Pulse 63 07/14/23 14:16 Resp 16 07/14/23 14:16 BP 112/62 07/14/23 14:16 Pulse Ox 97 07/14/23 14:16 Oxygen Delivery Method Room Air 07/14/23 14:16 BMI result Body Mass Index 33.4 Const General: cooperative, healthy appearing and comfortable Nutritional Appearance: obese Orientation/consciousness: patient oriented x3 HEENT Head: Yes normal to inspection Throat: Yes other (mallampatti grade 4) Neuro Other: UPDRS - 3 Speech 1-Slight loss of expression,diction or volume Facial expression 3-Moderate hypomimia,lips parted some of the time Rest Tremors( head, Upper, lower ) 3-Moderate in amplitude and present most of the time-Left UE Action and Postural tremors 0-none Rigidity 1-Slight or detectable only when activated by mirror movements Finger Taps 1-Mild slowing an femi reductionin amplitude Hand movements 0-normal 1-mild slowing and or reduction in amplitude Rapid Alternating Movements of Hands 0-normal 1-Mild slowing and or reduction in amplitude Leg agility 0-normal Arising from a chair 0-Normal Posture 0-normal 1-slightly stooped, could be normal for an older person Gait 0-normal- decreased arm swing left UE Postural stability 0-normal 1-retropulsion but recovers unaided Body bradykinesia and hypokinesia 0-none 1-minimal slowness,giving movement a deliberate character,could be normal for some persons.Possible reduced amplitude General: patient oriented x3 Motor exam (neuro): 5/5 motor strength present throughout Coordination: [id number] test normal Assessment & Plan Assessment & Plan (1) Parkinson's disease without dyskinesia or fluctuating manifestations: Code(s): G20.A1 - Parkinson's disease without dyskinesia, without mention of fluctuations Category: Medical (2) Obstructive sleep apnea: Code(s): G47.33 - Obstructive sleep apnea (adult) (pediatric) Category: Medical Plan Increase sinemet 25/100 1.5 tabs qid - side effects discussed continue parkinsons classes will consider ref to [facility] .. 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 Medications: Changed From carbidopa-levodopa 25-100 mg (Sinemet) 1.5 tabs PO TID 150 tabs 6RF To carbidopa-levodopa 25-100 mg (Sinemet) 1.5 tabs PO QID 180 tabs 6RF Coding Level of Care Code Est Pt Level 4 (33073) Complex EM visit Add On G2211 Diagnoses Parkinson's disease without dyskinesia or fluctuating manifestations G20.A1 Obstructive sleep apnea G47.33
[2023-07-14 14:16] VITALS: BP 112/62; PULSE 63; RESP 16; O2SAT 97; BMI 33.4
== END 2023-07-14 14:35 | disposition home or self-care (01) ==
PROVIDERS: PCP Internal Medicine; Visit Provider Psychiatry & Neurology Neurology
DX: G20.A1 Parkinson's disease without dyskinesia, without mention of fluctuations (principal); G47.33 Obstructive sleep apnea (adult) (pediatric)
CPT/HCPCS: 99214; G2211

== ENCOUNTER → 2023-07-14 14:06 | Outpatient (BNVA) | payer MEDICARE, OTHER, SELFPAY | PROVIDERS: PCP Internal Medicine; Visit Provider Psychiatry & Neurology Neurology | DX: G20.A1 Parkinson's disease without dyskinesia, without mention of fluctuations (principal); G47.33 Obstructive sleep apnea (adult) (pediatric); Z99.89 Dependence on other enabling machines and devices | CPT/HCPCS: 99212 ==